=== PATIENT | female | born 1985 | race Two or more races ===

== ENCOUNTER 2017-10-31 07:52 | Emergency (ER) | payer MEDICAID ==
[~2017-10-31] VITALS: Ht 160 cm; Wt 80.7 kg
[2017-10-31] MEDS ORDERED: ROBITUSSIN COU237 M1 PO (08:44)
[2017-10-31] MEDS ORDERED: AZITHROMYCIN250 MG ORAL (08:44)
[2017-10-31 08:51] VITALS: BP 123/87
--- NOTE | 2017-10-31 08:55 | Emergency Room Report ---
History of Present Illness General Chief Complaint: Upper Respiratory Illness Source: Patient Present Illness HPI Patient present with complaints of cough and congestion over the past 6 days She reports discomfort to the upper mid chest area She has increased runny nose denies any neck pain or photophobia denies any vomiting or diarrhea initially reports discomfort is worse with laying Denies any rash Denies any recent travel Patient's cough has been somewhat productive the Allergies: Coded Allergies: IODINE (Verified Allergy, Unknown, 10/31/17) Uncoded Allergies: PENICILLIN (Allergy, Unknown, 10/31/17) Patient History Past Medical History: see triage record Pertinent Family History: none Last Menstrual Period: 09/28/2017 Now: No Reviewed Nursing Documentation: PMH: Agreed, PSxH: Agreed Nursing Documentation-PMH Past Medical History: No History, Except For Hx Asthma: Yes Review of Systems All Other Systems: negative except mentioned in HPI Physical Exam Vital Signs Date Time Temp Pulse Resp B/P (MAP) Pulse Ox O2 Delivery O2 Flow Rate FiO2 10/31/17 07:56 97.9 105 18 127/84 99 Room Air Sp02 EP Interpretation: reviewed, normal General Appearance: well appearing, no apparent distress Head: normocephalic, atraumatic Eyes: bilateral eye PERRL, bilateral eye EOMI ENT: hearing grossly normal, normal pharynx, TMs + canals normal, uvula midline Neck: full range of motion, supple, no meningismus, no bony tend Respiratory: lungs clear, normal breath sounds, no rhonchi, no respiratory distress, no retraction, no accessory muscle use Cardiovascular #1: normal peripheral pulses, regular rate, rhythm, no edema, no gallop, no JVD, no murmur Gastrointestinal: normal bowel sounds, non tender, soft, no mass, no organomegaly, non-distended, no guarding, no hernia, no pulsatile mass, no rebound Genitourinary: no CVA tenderness Musculoskeletal: normal inspection Neurologic: oriented x3, responsive, 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, motor strength/ tone normal, sensory intact Psychiatric: mood/affect normal Skin: normal color, no rash, warm/dry, palpation normal Lymphatic: normal inspection, no adenopathy Medical Decision Making Diagnostic Impression: Primary Impression: atypical pneumonia ER Course X-ray imaging does not reveal any obvious focal infiltrate Multiple differentials including but not limited to vascular pathology, other cardiac, cardiopulmonary pathology Other infectious etiology entertained patient resting comfortably in the room Vital signs including pulse ox on a tree and hemodynamically remained stable Given the atypical presentation with possible atypical pneumonia patient placed on medications and will have close outpatient followup Chest X-Ray Diagnostic Results Chest X-Ray Diagnostic Results : Chest X-Ray Ordered: Yes # of Views/Limited/Complete: 1 View Indication: Chest Pain EP Interpretation: Yes Interpretation: no consolidation, no effusion, no pneumothorax Impression: No acute disease Electronically Signed by: Monica Davis DO Last Vital Signs Date Time Temp Pulse Resp B/P (MAP) Pulse Ox O2 Delivery O2 Flow Rate FiO2 10/31/17 08:51 97.9 111 16 123/87 99 Room Air Status: improved Disposition: HOME, SELF-CARE Condition: Improved Scripts Guaifenesin/Dextromethorphan (ROBITUSSIN COUGH-CHEST DM LIQ) 237 Ml Liquid 10 ML PO QHS for 5 Days, ML Prov: MONICA DAVIS D.O. 10/31/17 Azithromycin* (ZITHROMAX*) 250 Mg Tablet 250 MG ORAL DAILY, #6 TAB 0 Refills Take two tablets by mouth today, then take one tablet by mouth daily for four days Prov: MONICA DAVIS D.O. 10/31/17 Referrals: [facility] (PCP) Patient Instructions: Community-Acquired Pneumonia, Adult, [id number] Additional Instructions: Patient is provided with the discharge instructions notified to follow up with primary doctor in the next 2-3 days otherwise return to the er with any worsening symptoms. Please note that this report is being documented using [employer] technology. This can lead to erroneous entry secondary to incorrect interpretation by the dictating instrument. MONICA DAVIS D.O. Oct 31, 2017 08:55
--- NOTE | 2017-10-31 09:20 | Diagnostic Imaging Report ---
Indication: Dyspnea Technique: XRAY Chest 1v Comparison: None Findings: Heart size and mediastinal contours are within normal limits given technique. There is no focal consolidation, pneumothorax or pleural effusion. Osseous structures demonstrate no acute abnormality. Impression: No radiographic evidence of acute cardiopulmonary disease.
== END 2017-10-31 08:52 | disposition home or self-care (01) ==
LOC: EMR 08:05
DX: J18.9 Pneumonia, unspecified organism (principal); R07.9 Chest pain, unspecified; Z88.0 Allergy status to penicillin
CPT/HCPCS: 71045; 99284

== ENCOUNTER 2018-06-06 10:33 | Emergency (ER) | payer MEDICAID ==
[~2018-06-06] VITALS: Ht 160 cm; Wt 72.6 kg
[~2018-06-06 10:33] MED LIST: AZITHROMYCIN250 MG ORAL; ROBITUSSIN COU237 M1 PO
[2018-06-06 10:51] VITALS: BP 122/81
--- NOTE | 2018-06-06 11:07 | Emergency Room Report ---
History of Present Illness General Chief Complaint: Abdominal Pain Source: Patient Present Illness HPI Patient is a 32-year-old female presented after increased low abdominal pain. Patient prior history of cystic ovary disease. She reports having multiple episodes of vomiting. She ports having a positive test at home. She states her last menses was in April. Allergies: Coded Allergies: IODINE (Verified Allergy, Unknown, 10/31/17) PENICILLINS (Verified Allergy, Unknown, 06/06/18) Patient History Last Menstrual Period: 04/04/2018 Now: Yes : 2 Para: 0 Reviewed Nursing Documentation: PMH: Agreed; PSxH: Agreed Nursing Documentation-PMH Past Medical History: No History, Except For Hx Asthma: Yes Review of Systems All Other Systems: negative except mentioned in HPI Physical Exam Vital Signs Date Time Temp Pulse Resp B/P (MAP) Pulse Ox O2 Delivery O2 Flow Rate FiO2 06/06/18 10:40 98.0 77 16 122/81 98 Room Air 98.1 Sp02 EP Interpretation: reviewed, normal General Appearance: normal inspection, well appearing, no apparent distress, alert, GCS 15 Head: atraumatic ENT: normal ENT inspection, hearing grossly normal, normal voice Neck: normal inspection, full range of motion, supple, no bony tend Respiratory: normal inspection, lungs clear, normal breath sounds, no respiratory distress, no retraction, no wheezing Cardiovascular #1: regular rate, rhythm, no edema Gastrointestinal: normal inspection, normal bowel sounds, non tender, soft, no guarding, no hernia Genitourinary: no CVA tenderness Musculoskeletal: normal inspection, back normal, normal range of motion Neurologic: normal inspection, alert, responsive, speech normal Psychiatric: normal inspection, judgement/insight normal, mood/affect normal Skin: normal inspection, normal color, no rash Medical Decision Making Diagnostic Impression: Primary Impression: Intrauterine ER Course Patient presented for abdominal pain. Differential diagnoses included hyperemesis gravidarum, ectopic , ischemic bowel, appendicitis, perforated viscus, abdominal aortic aneurysm, inferior myocardial infarction, viral gastroenteritis Because of complexity of patient's case laboratory testing and imaging studies were ordered. The laboratory testing was unremarkable. Patient's quantitative hCG was noted be greater the 60,000. Patient started on IV fluids. The patient was offered antiemetics which she declined.patient was Diclegis The pelvic ultrasound showed intrauterine approximately 6 weeks. Labs Test 06/06/18 10:48 9/2/18 11:25 Urine Color Pale yellow Urine Appearance Clear Urine pH 7 (4.5-8.0) Urine Specific [place] 1.005 (1.005-1.035) Urine Protein Negative (NEGATIVE) Urine Glucose (UA) Negative (NEGATIVE) Urine Ketones Negative (NEGATIVE) Urine Blood Negative (NEGATIVE) Urine Nitrite Negative (NEGATIVE) Urine Bilirubin Negative (NEGATIVE) Urine Urobilinogen Normal MG/DL (0.0-1.0) Urine Leukocyte Esterase 1+ (NEGATIVE) Urine RBC 0-2 /HPF (0 - 2) Urine WBC 0-2 /HPF (0 - 2) Urine Squamous Epithelial Cells Few /LPF (NONE/OCC) Urine Bacteria Few /HPF (NONE) White Blood Count 10.3 K/UL (4.8-10.8) Red Blood Count 4.87 M/UL (4.20-5.40) Hemoglobin 13.8 G/DL (12.0-16.0) Hematocrit 41.1 % (37.0-47.0) Mean Corpuscular Volume 84 FL (80-99) Mean Corpuscular Hemoglobin 28.4 PG (27.0-31.0) Mean Corpuscular Hemoglobin Concent 33.7 G/DL (32.0-36.0) Red Cell Distribution Width 11.5 % (11.6-14.8) Platelet Count 391 K/UL (150-450) Mean Platelet Volume 6.3 FL (6.5-10.1) Neutrophils (%) (Auto) 71.9 % (45.0-75.0) Lymphocytes (%) (Auto) 21.0 % (20.0-45.0) Monocytes (%) (Auto) 6.0 % (1.0-10.0) Eosinophils (%) (Auto) 0.2 % (0.0-3.0) Basophils (%) (Auto) 1.0 % (0.0-2.0) Sodium Level 136 MMOL/L (136-145) Potassium Level 3.6 MMOL/L (3.5-5.1) Chloride Level 101 MMOL/L (98-107) Carbon Dioxide Level 26 MMOL/L (21-32) Anion Gap 9 mmol/L (5-15) Blood Urea Nitrogen 7 mg/dL (7-18) Creatinine 0.6 MG/DL (0.55-1.30) Estimat Glomerular Filtration Rate > 60 mL/min (>60) Glucose Level 94 MG/DL (74-106) Calcium Level 9.1 MG/DL (8.5-10.1) Total Bilirubin 0.4 MG/DL (0.2-1.0) Aspartate Amino Transf (AST/SGOT) 12 U/L (15-37) Alanine Aminotransferase (ALT/SGPT) 23 U/L (12-78) Alkaline Phosphatase 115 U/L (46-116) Total Protein 7.5 G/DL (6.4-8.2) Albumin 3.5 G/DL (3.4-5.0) Globulin 4.0 g/dL Albumin/Globulin Ratio 0.9 (1.0-2.7) Lipase 85 U/L (73-393) Human Chorionic Gonadotropin, Quant 30611 mIU/mL (1-6) Last Vital Signs Date Time Temp Pulse Resp B/P (MAP) Pulse Ox O2 Delivery O2 Flow Rate FiO2 06/06/18 10:51 98.1 84 16 122/81 98 Room Air 98.1 Status: improved Disposition: HOME, SELF-CARE Condition: Stable Scripts Doxylamine/Pyridoxine Hcl (MINNA DANIEL 10-10 MG TABLET) 1 Each Tablet. 1 EACH PO [facility], #30 TAB Prov: Jacek Pardo MD 06/06/18 Jacek Pardo MD Jun 06, 2018 11:06
[2018-06-06] MEDS ORDERED: Dextrose 5%/Lactated Ringer's 1,000 ML IV SCH (11:15)
[2018-06-06 11:18] LABS: APPEARANCE,URINE CLEAR; BILIRUBIN, URINE NEGATIVE (NEGATIVE); COLOR,URINE PALE YELLOW; GLUCOSE, URINE (UA) NEGATIVE (NEGATIVE); KETONES,URINE NEGATIVE (NEGATIVE); LEUKOCYTE ESTERASE ,URINE 1+ (NEGATIVE); NITRITE,URINE NEGATIVE (NEGATIVE); PH,URINE 7 (4.5-8.0); PROTEIN,URINE NEGATIVE (NEGATIVE); UROBILINOGEN,URINE NORMAL MG/DL (0.0-1.0)
[2018-06-06 11:48] LABS: EOSINOPHILS % (AUTO) 0.2 % (0.0-3.0); HEMATOCRIT 41.1 % (37.0-47.0); HEMOGLOBIN 13.8 G/DL (12.0-16.0); MEAN CORPUSCULAR VOLUME 84 FL (80-99); NEUTROPHILS % (AUTO) 71.9 % (45.0-75.0); PLATELET COUNT 391 K/UL (150-450); RED BLOOD COUNT 4.87 M/UL (4.20-5.40); RED CELL DISTRIBUTION WIDTH 11.5 % (11.6-14.8); WHITE BLOOD COUNT 10.3 K/UL (4.8-10.8)
[2018-06-06 11:59] LABS: ANION GAP 9 mmol/L (5-15); BLOOD UREA NITROGEN 7 mg/dL (7-18); CALCIUM 9.1 MG/DL (8.5-10.1); CARBON DIOXIDE 26 MMOL/L (21-32); CHLORIDE 101 MMOL/L (98-107); CREATININE 0.6 MG/DL (0.55-1.30); POTASSIUM 3.6 MMOL/L (3.5-5.1); SODIUM 136 MMOL/L (136-145)
[2018-06-06 12:05] LABS: ALANINE AMINOTRANSFERASE 23 U/L (12-78); ALBUMIN 3.5 G/DL (3.4-5.0); ALBUMIN/GLOBULIN RATIO 0.9 (1.0-2.7); ALKALINE PHOSPHATASE 115 U/L (46-116); ASPARTATE AMINO TRANSFERASE 12 U/L (15-37); BILIRUBIN,TOTAL 0.4 MG/DL (0.2-1.0)
[2018-06-06] MEDS ORDERED: DICLEGIS DR 101 EACH PO (13:24)
[2018-06-06 14:40] VITALS: BP 124/83
[2018-06-06 14:41] VITALS: BP 122/81
--- NOTE | 2018-06-06 17:26 | Diagnostic Imaging Report ---
EXAM: US First Trimester, Transabdominal CLINICAL HISTORY: ABD PAIN TECHNIQUE: Real-time transabdominal obstetrical ultrasound of the maternal pelvis and a first trimester with image documentation. COMPARISON: No relevant prior studies available. FINDINGS: Gestation: Single live IUP approximately 6 weeks 2 days. Marston-rump length 5.5 mm. cardiac motion visualized, but not quantitatively measured. Uterus/cervix: Unremarkable. No myometrial mass. Ovaries: Right ovary not visualized. Left adnexal 2.5 cm cyst. No abnormal adnexal mass. Free fluid: No free fluid. IMPRESSION: Single live IUP approximately 6 weeks 2 days.
== END 2018-06-06 14:41 | disposition home or self-care (01) ==
LOC: EMR 11:00
DX: O26.891 Other specified pregnancy related conditions, first trimester (principal); R10.9 Unspecified abdominal pain; Z3A.00 Weeks of gestation of pregnancy not specified
CPT/HCPCS: 36415; 76856; 80053; 81003; 83690; 84702; 85025; 99284

== ENCOUNTER 2018-07-12 00:51 | Emergency (ER) | payer MEDICAID ==
[~2018-07-12] VITALS: Ht 162.6 cm; Wt 68.0 kg
[~2018-07-12 00:51] MED LIST changes: +DICLEGIS DR 101 EACH PO
--- NOTE | 2018-07-12 01:12 | Emergency Room Report ---
History of Present Illness General Chief Complaint: Complications Source: Patient Present Illness HPI Patient presents with complaints of vaginal spotting that happened 2 hours prior to arrival Patient reports that she had a small amount of cramping in the lower suprapubic area when this happened as well Denies any vomiting denies any diarrhea Patient is approximately 12 weeks Patient had ultrasound performed here in the beginning of June which showed approximately 6 week intrauterine Patient denies any dysuria Denies any trauma Allergies: Coded Allergies: IODINE (Verified Allergy, Unknown, 10/31/17) PENICILLINS (Verified Allergy, Unknown, 06/06/18) Patient History Past Medical History: see triage record Pertinent Family History: none Now: Yes Reviewed Nursing Documentation: PMH: Agreed; PSxH: Agreed Nursing Documentation-PMH Hx Asthma: Yes Review of Systems All Other Systems: negative except mentioned in HPI Physical Exam Vital Signs Date Time Temp Pulse Resp B/P (MAP) Pulse Ox O2 Delivery O2 Flow Rate FiO2 07/12/18 01:02 99.2 101 18 122/85 97 Room Air 99.1 Sp02 EP Interpretation: reviewed, normal General Appearance: well appearing, no apparent distress Head: normocephalic, atraumatic Eyes: bilateral eye PERRL, bilateral eye EOMI ENT: hearing grossly normal, normal pharynx, TMs + canals normal, uvula midline Neck: full range of motion, supple, no meningismus, no bony tend Respiratory: lungs clear, normal breath sounds, no rhonchi, no respiratory distress, no retraction, no accessory muscle use Cardiovascular #1: normal peripheral pulses, regular rate, rhythm, no edema, no gallop, no JVD, no murmur Gastrointestinal: normal bowel sounds, non tender, soft, no mass, no organomegaly, non-distended, no guarding, no hernia, no pulsatile mass, no rebound Genitourinary: no CVA tenderness Musculoskeletal: normal inspection Neurologic: oriented x3, responsive, 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, motor strength/ tone normal, sensory intact Psychiatric: mood/affect normal Skin: normal color, no rash, warm/dry, palpation normal Lymphatic: normal inspection, no adenopathy Medical Decision Making Diagnostic Impression: Primary Impression: Threatened ER Course With the patient's history and examination, multiple differentials considered, including but not limited to , ectopic , ovarian torsion, gastritis, cholecystitis, pancreatitis, appendicitis Patient has ultrasound report in computer from early June showing intrauterine therefore ectopic has been ruled out Patient's urine sample did show some questionable bacteria At this time emergency ultrasonography is not warranted And patient will have close outpatient follow-up with a UTI treatment Labs Test 07/12/18 01:25 07/12/18 01:50 Urine Color Yellow Urine Appearance Slightly cloudy Urine pH 7 (4.5-8.0) Urine Specific [place] 1.015 (1.005-1.035) Urine Protein 2+ (NEGATIVE) Urine Glucose (UA) Negative (NEGATIVE) Urine Ketones Negative (NEGATIVE) Urine Blood 5+ (NEGATIVE) Urine Nitrite Negative (NEGATIVE) Urine Bilirubin Negative (NEGATIVE) Urine Urobilinogen Normal MG/DL (0.0-1.0) Urine Leukocyte Esterase 1+ (NEGATIVE) Urine RBC Tntc /HPF (0 - 2) Urine WBC 0-2 /HPF (0 - 2) Urine Squamous Epithelial Cells Moderate /LPF (NONE/OCC) Urine Bacteria Moderate /HPF (NONE) Urine HCG, Qualitative Positive (NEGATIVE) Human Chorionic Gonadotropin, Quant 17679 mIU/mL (1-6) Last Vital Signs Date Time Temp Pulse Resp B/P (MAP) Pulse Ox O2 Delivery O2 Flow Rate FiO2 07/12/18 01:02 99.2 101 18 122/85 97 Room Air 99.1 Status: unchanged Disposition: HOME, SELF-CARE Condition: Stable Scripts Nitrofurantoin Monohyd/M-Cryst* (MACROBID 100 MG*) 100 Mg Capsule 100 MG ORAL EVERY 12 HOURS for 7 Days, CAP Prov: Monica Ambrosio DO 07/12/18 Referrals: [facility] (PCP) Additional Instructions: Patient is provided with the discharge instructions notified to follow up with primary doctor in the next 2-3 days otherwise return to the er with any worsening symptoms. Please note that this report is being documented using [employer] technology. This can lead to erroneous entry secondary to incorrect interpretation by the dictating instrument. Monica Ambrosio DO Jul 12, 2018 01:12
[2018-07-12 01:29] LABS: BILIRUBIN, URINE NEGATIVE (NEGATIVE); GLUCOSE, URINE (UA) NEGATIVE (NEGATIVE); KETONES,URINE NEGATIVE (NEGATIVE); LEUKOCYTE ESTERASE ,URINE 1+ (NEGATIVE); NITRITE,URINE NEGATIVE (NEGATIVE); PH,URINE 7 (4.5-8.0); PROTEIN,URINE 2+ (NEGATIVE); UROBILINOGEN,URINE NORMAL MG/DL (0.0-1.0)
[2018-07-12 01:35] LABS: APPEARANCE,URINE SLIGHTLY CLOUDY; COLOR,URINE YELLOW
[2018-07-12] MEDS ORDERED: NITROFURANTOIN100 M2 ORAL (03:07)
[2018-07-12 03:21] VITALS: BP 122/85
== END 2018-07-12 03:23 | disposition home or self-care (01) ==
LOC: EMR 01:10
DX: O20.0 Threatened abortion (principal); Z3A.12 12 weeks gestation of pregnancy; Z88.0 Allergy status to penicillin; Z91.041 Radiographic dye allergy status
CPT/HCPCS: 36415; 81003; 81025; 84702; 87086; 99284